=== PATIENT | male | born 1990 | race African-American/Black ===

== ENCOUNTER → 2018-07-02 08:48 | Outpatient (CLI) | payer OTHER, SELFPAY ==
--- NOTE | 2018-07-02 09:00 | RAD_ITS ---
STUDY: X-RAY - ESOPHAGUS (BARIUM SWALLOW) WITH FLUOROSCOPY REASON FOR EXAM: Male, 27 years old. Dysphagia for solids. TECHNIQUE: 18 view(s) of the esophagus were obtained following swallowing of barium. FLUOROSCOPY TIME (if supplied): (0:30) minutes/seconds COMPARISON: None. FINDINGS: There is no demonstrated esophageal foreign body. There is no demonstrated stricture or mucosal abnormality. Normal gastroesophageal junction, without a demonstrated hiatal hernia. The patient ingested a 12 mm tablet of barium without any difficulty. Normal visualized aortic arch and descending thoracic aorta. Normal visualized pulmonary parenchyma. Normal visualized osseous structures of the thorax. RAD/Esophagus Only IMPRESSION: Normal plain film x-ray examination (barium swallow) of the esophagus. Electronically Signed: Magdi Brewer MD at 9:48 EST Tel [phone], Service support ,
== END ==
PROVIDERS: Family Provider Family Medicine; PCP Family Medicine; Referring Provider Family Medicine; Visit Provider Family Medicine
DX: R13.10 Dysphagia, unspecified (principal)
CPT/HCPCS: 74220

== ENCOUNTER → 2021-01-11 09:43 | Outpatient (CLI) | payer OTHER, SELFPAY ==
[2021-01-11 12:49] LABS: BUN 14 mg/dL (7-18); BUN/Creat Ratio 12.4 RATIO (10-20); Creatinine, Serum 1.13 mg/dL (0.70-1.30); EST Glomerular Filtration Rate 81 mL/min (>60); Est Glom Filt Rate - Afr Amer 98 mL/min (>60); Glucose 85 mg/dL (74-106); Protein, Total 8.5 g/dL (6.4-8.2)
[2021-01-11 12:50] LABS: ALB/GLOB Ratio 0.8 RATIO (0.9-2.4); AST(SGOT) 24 U/L (15-37); Alanine Aminotransfer ALT/SGPT 41 U/L (16-61); Albumin, Serum 3.7 g/dL (3.2-5.0); Alkaline Phosphatase 86 U/L (45-117); Anion Gap 5 (5-15); Calcium,Total 9.1 mg/dL (8.5-10.1); Chloride 103 mmol/L (98-107); Cholesterol 184 mg/dL (200); Globulin 4.8 g/dL (2.2-4.2); High Density Lipoprotein 44 mg/dL; Potassium 3.9 mmol/L (3.5-5.1); Sodium Level 137 mmol/L (136-145); Triglycerides 97 mg/dL; Very Low Density Lipoprotein 19 mg/dL (5-40)
== END ==
PROVIDERS: PCP Family Medicine; Referring Provider Physician Assistant Medical; Visit Provider Physician Assistant Medical
DX: L66.8 Other cicatricial alopecia (principal); Z79.899 Other long term (current) drug therapy; L65.9 Nonscarring hair loss, unspecified
CPT/HCPCS: 36415; 80053; 80061

== ENCOUNTER 2022-01-11 09:41 | Day surgery (SDC) | payer OTHER, SELFPAY ==
[2022-01-11] VITALS (7 sets, daily range): BP systolic 109–149; BP diastolic 53–92; PULSE 65–80; RESP 16; TEMP 36.2–36.7; O2SAT 97–100; BMI 39.6
--- NOTE | 2022-01-11 | ESO_PTH ---
PATIENT: RONEY LAMAS LOC: EN U#:[id number] AGE/SX: 31/M ROOM: RE01/11/[address]: Dr. Binh Cedeno DO : 1990 BED: DIS: 01/11/2022 SPEC #: [id number] RECD: 01/11/22 14:54 STATUS: MACK REQ #: [id number] BRIAN: 01/11/22 00:[address]: Binh Cedeno DEPT: SURGICAL PATHOLOGY RECD BY: Jamal Ortega ENTERED: 01/12/22 08:41 SP TYPE: ALISSON BILLS DR: Dr. René Ortega MD Tissues: A - Esophagus, NOS B - Esophageal mucous membrane Procedures: Special Stain Group II Surgery Specimen Level IV Alcian Blue/PAS (control) HEADER OPERATION: [place] ([facility] [place] PRE-OP DIAGNOSIS: Dysphagia TISSUE SUBMITTED: A ? Distal esophagus biopsy, B ? Random esophagus biopsy MICROSCOPIC DIAGNOSIS A. Distal esophagus, biopsy: Fragments of gastric mucosa with mild chronic inflammation. Intestinal metaplasia (goblet cell metaplasia) not identified. See comment. B. Esophagus, random biopsy: Fragments of squamous epithelium with chronic inflammation and changes suggestive of esophagitis. See comment. SJ:rg 01/13/2022 COMMENT A. Alcian blue/PAS stain with matched control is used in the evaluation of the specimen. B. Focal mild increase of eosinophils (about 15 per high power field) are noted suggestive of eosinophilic esophagitis. MICROSCOPIC DESCRIPTION Slides are reviewed. GROSS DESCRIPTION A - Received in fixative is one container labeled with the patient's name and designated distal esophagus biopsy. The specimen consists of multiple irregular fragments of light patiño soft tissue that in aggregate measure 1 x 0.3 x 0.1 cm. The specimen is totally submitted in one cassette. B - Received in fixative is one container labeled with the patient's name and designated random esophagus biopsy. The specimen consists of multiple irregular fragments of light patiño soft tissue that in aggregate measure 1 x 0.3 x 0.1 cm. The specimen is totally submitted in one cassette. / LUIS:bailey 01/12/2022 TC:3 CPT: 22582 x2, 03162
--- NOTE | 2022-01-11 09:46 | PCM.HP.BLA ---
History and Physical Date of Admission: 01/11/22 31 M who presents to the office today for Initial consultation. Yair established with this clinic 10.19.21 with a referral from his PCP for evaluation of dysphagia with food and GERD; onset 2014. On two occasions he has had food lodge without emergent intervention. Utilizes omeprazole 40mg QD which manages reflux well; if stopped for several days, symptoms return. Denies similar family history. History of asthma (with daily inhaler and rescue inhaler). Barium swallow 07.02.18 found a normal exam. ROS Const Constitutional: No anorexia, fatigue, fever(s), weight change or sleep problems Eyes Eyes: No change in vision ENT ENT: No abnormal hearing, difficulty swallowing, mouth lesions, tongue swelling or throat swelling Resp Respiratory: No cough or shortness of breath Cardio Cardiology: No chest pain at rest, chest pain with exertion, shortness of breath or dyspnea on exertion Gastro GI: No difficulty swallowing Genitourinary Male: No difficulty urinating or burning urination Musc Musculoskeletal: No joint pain, joint swelling, muscle weakness or decreased muscle mass Skin Skin: No hair loss in leg, yellowing of the eye, itchy eyes, rash, skin ulcer or skin swelling Neuro Neurology: No abnormal hearing, abnormal movements, confusion, unsteady gait/balance or memory loss Psych Psychiatric: No anxiety, No confusion and No memory loss Endo Endocrine: No fatigue or weight change Aller/Imm Allergy/Immunologic: No itchy eyes, throat swelling or tongue swelling Nelson/Lymp Hematologic/Lymphatic: No easy bleeding, easy bruising or enlarged lymph nodes Exam Const General: cooperative and comfortable Nutritional Appearance: average body habitus and well nourished [facility] Head: normal to inspection Ears: hearing grossly normal bilaterally Nose: external nose normal Face and sinus: normal facial exam Mouth: oral mucosae normal Throat: posterior oropharynx normal Eyes General: appearance normal, both eyes and all related structures Neck Neck: normal visual inspection Chest Chest palpation & inspection: normal inspection of the chest and normal palpation of entire chest wall Resp Effort & Inspection: normal respiratory effort Auscultation: Bilateral: Clear to Auscultation Cardio Palpation: normal PMI Rate: regular rate Rhythm: regular rhythm GI Inspection: normal to inspection Auscultation: normal bowel sounds Percussion: normal to percussion Palpation: no hepatosplenomegaly Skin General: no rashes or lesions noted Neuro General: patient alert Extrem General: normal to inspection Psych Affect: normal affect Assessment and Plan Assessment and Plan (1) Dysphagia: ?Status:?Acute ?Plan - Dr. Purcell Friend, DO: In the setting of multiple allergies to differential? diagnosis for his dysphagia, would include eosinophilic esophagitis.? Also differential diagnosis would be an esophageal ring in the setting of a hiatal hernia and or laxity of the lower esophageal sphincter.? We will evaluate his upper GI tract for eosinophilic esophagitis, esophageal web, esophageal ring, esophageal stricture.? We will also evaluate his stomach and small bowel.? He may get an esophageal dilation.? He was explained alternatives, risk, benefits including understanding bleeding, infection, sepsis, perforation, need for emergent . He will have an ASA of 1. (2) GERD (gastroesophageal reflux disease): ?Status:?Acute I have re-examined the patient. There are no clinical changes since date of exam.
[2022-01-11] MEDS: Lactated Ringers 1,000 ML 15 ML IV (10:12)
--- NOTE | 2022-01-11 10:57 | OP.EGD_ITS ---
Patient Name: Yair Levy Procedure Date: 01/11/2022 10:33 AM Date of : 1990 Age: 31 Procedure: Upper GI endoscopy Indications: Dysphagia, Heartburn Providers: Binh Cedeno DO Medicines: Monitored Anesthesia Care Patient Profile: This is a 31 year old male. Refer to note in patient chart for documentation of history and physical. Patient has symptoms of chronic dysphagia. Complications: No immediate complications. Procedure: Pre-Anesthesia Assessment: - Prior to the procedure, a History and Physical was performed, and patient medications and allergies were reviewed. The patient is competent. The risks and benefits of the procedure and the sedation options and risks were discussed with the patient. All questions were answered and informed consent was obtained. Patient identification and proposed procedure were verified by the physician in the pre-procedure area. Mental Status Examination: alert and oriented. Airway Examination: normal oropharyngeal airway and neck mobility. Respiratory Examination: clear to auscultation. CV Examination: normal. Prophylactic Antibiotics: The patient does not require prophylactic antibiotics. Prior Anticoagulants: The patient has taken no previous anticoagulant or antiplatelet agents. ASA Grade Assessment: II - A patient with mild systemic disease. After reviewing the risks and benefits, the patient was deemed in satisfactory condition to undergo the procedure. The anesthesia plan was to use moderate sedation / analgesia (conscious sedation). Immediately prior to administration of medications, the patient was re-assessed for adequacy to receive sedatives. The heart rate, respiratory rate, oxygen saturations, blood pressure, adequacy of pulmonary ventilation, and response to care were monitored throughout the procedure. The physical status of the patient was re-assessed after the procedure. After obtaining informed consent, the endoscope was passed under direct vision. Throughout the procedure, the patient's blood pressure, pulse, and oxygen saturations were monitored continuously. The gastroscope was introduced through the mouth, and advanced to the second part of duodenum. The upper GI endoscopy was accomplished without difficulty. The patient tolerated the procedure well. Scope In: 10:45:02 AM Scope Out: 10:51:34 AM Total Procedure Duration Time 0 hours 6 minutes 32 seconds Findings: The Z-line was irregular and was found 39 cm from the incisors. Biopsies were taken with a cold forceps for histology. Verification of patient identification for the specimen was done. Estimated blood loss was minimal. Random biopsies were taken of the esophagus to rule out eosinophilic esophagitis. The entire examined stomach was normal. The second portion of the duodenum was normal. Impression: - Z-line irregular, 39 cm from the incisors. Biopsied. - Normal stomach. - Normal second portion of the duodenum. Recommendation: - Discharge patient to home. - Resume previous diet. - Continue present medications. - Await pathology results. Procedure Code(s): --- Professional --- 53370, Esophagogastroduodenoscopy, flexible, transoral; with biopsy, single or multiple CPT copyright 2017 [employer]. All rights reserved. The codes documented in this report are preliminary and upon catering and events manager review may be revised to meet current compliance requirements. Binh Cedeno DO 01/11/2022 10:56:22 AM This report has been signed electronically. Number of Addenda: 1 Note Initiated On: 01/11/2022 10:33 AM Addendum Number: 1 Addendum Date: 05/02/2022 6:19:36 AM MAC was used as sedation for this procedure. Binh Cedeno DO 05/02/2022 6:19:42 AM This report has been signed electronically.
--- NOTE | 2022-01-11 10:58 | OP.CCLET_ITS ---
05/02/2022 Mahendra Ortega [address] [place] [address] Re : Upper GI endoscopy procedure for Yair Levy Dear Dr. Ortega This procedure was performed on Tuesday, January 11, 2022. My impressions and recommendations are as follows: Impressions : - Z-line irregular, 39 cm from the incisors. Biopsied. - Normal stomach. - Normal second portion of the duodenum. Recommendations : - Discharge patient to home. - Resume previous diet. - Continue present medications. - Await pathology results. My findings are described in the full procedure note, which is enclosed. If I can be of further assistance, please feel free to contact me at . Sincerely, Binh Cedeno, 01/11/2022 10:56:22 AM This report has been signed electronically.
== END 2022-01-11 12:12 | disposition home or self-care (01) ==
LOC: EN 09:42 → AC 09:43
PROVIDERS: PCP Family Medicine; Referring Provider Internal Medicine Gastroenterology; Visit Provider Internal Medicine Gastroenterology
PROC: 0DJ08ZZ Inspection of Upper Intestinal Tract, Via Natural or Artificial Opening Endoscopic (ICD-10-PCS; CPT 43235; principal; 2022-01-11 10:40)
DX: K21.00 Gastro-esophageal reflux disease with esophagitis, without bleeding (principal); R13.10 Dysphagia, unspecified; J45.909 Unspecified asthma, uncomplicated; Z79.899 Other long term (current) drug therapy
CPT/HCPCS: 43239; 88305; 88313; J7120; J2405

== ENCOUNTER → 2022-01-24 | Outpatient (CLI) | payer OTHER, SELFPAY ==
[2022-01-24 10:35] LABS: AST(SGOT) 21 U/L (15-37); Alanine Aminotransfer ALT/SGPT 42 U/L (16-61); Albumin, Serum 3.6 g/dL (3.2-5.0); Alkaline Phosphatase 70 U/L (45-117); Globulin 4.4 g/dL (2.2-4.2)
[2022-01-27 12:08] LABS: QNTFERON TB Mitogen Value > 10.00 IU/mL (.); QNTFERON TB Nil Value 0.07 IU/mL (.); QNTFERON TB1+ Ag Value 0.05 IU/mL (.); QNTFERON TB2+ Ag Value 0.05 IU/mL (.)
[2022-01-27 17:43] LABS: QNTIFERON TB Positive Criteria Negative (Negative)
== END | disposition home or self-care (01) ==
LOC: MTLAB 08:46
PROVIDERS: PCP Family Medicine; Referring Provider Dermatology Pediatric Dermatology; Visit Provider Dermatology Pediatric Dermatology
DX: L66.8 Other cicatricial alopecia (principal)
CPT/HCPCS: 36415; 80076; 86480

== ENCOUNTER → 2023-11-15 | Outpatient (CLI) | payer OTHER, SELFPAY ==
[2023-11-22 21:06] LABS: Beef 0.11 kU/L (Class 0/I); Chocolate <0.10 kU/L (Class 0); Codfish 0.12 kU/L (Class 0/I); Corn 2.28 kU/L (Class III); Egg, Whole 0.12 kU/L (Class 0/I); Milk (Cow) 0.59 kU/L (Class II); Mussels 0.23 kU/L (Class 0/I); Peanut 1.28 kU/L (Class II); Pork <0.10 kU/L (Class 0); Salmon <0.10 kU/L (Class 0); Shrimp 0.59 kU/L (Class II); Soybean 0.78 kU/L (Class II); Tuna 0.16 kU/L (Class 0/I); Wheat 1.81 kU/L (Class III)
== END | disposition home or self-care (01) ==
LOC: LAB 07:32
PROVIDERS: PCP Family Medicine; Referring Provider Internal Medicine Gastroenterology; Visit Provider Internal Medicine Gastroenterology
DX: K20.0 Eosinophilic esophagitis (principal)
CPT/HCPCS: 36415; 86003; 86005

== ENCOUNTER → 2024-06-09 | Outpatient (CLI) | payer OTHER, SELFPAY ==
[2024-06-09 10:23] LABS: Anion Gap 4 (5-15); BUN 21 mg/dL (7-18); BUN/Creat Ratio 17.6 RATIO (10-20); Calcium,Total 9.2 mg/dL (8.5-10.1); Chloride 106 mmol/L (98-107); Cholesterol 170 mg/dL (200); Creatinine, Serum 1.19 mg/dL (0.70-1.30); EST Glomerular Filtration Rate 74 mL/min (>60); Est Glom Filt Rate - Afr Amer 90 mL/min (>60); Glucose 96 mg/dL (74-106); High Density Lipoprotein 44 mg/dL; Potassium 4.1 mmol/L (3.5-5.1); Sodium Level 138 mmol/L (136-145); Triglycerides 67 mg/dL; Very Low Density Lipoprotein 13 mg/dL (5-40)
== END | disposition home or self-care (01) ==
LOC: LAB 09:17
PROVIDERS: PCP Family Medicine; Referring Provider Nurse Practitioner Family; Visit Provider Nurse Practitioner Family
DX: Z13.220 Encounter for screening for lipoid disorders (principal); Z13.1 Encounter for screening for diabetes mellitus
CPT/HCPCS: 36415; 80048; 80061

== ENCOUNTER 2025-01-13 12:47 | Day surgery (SDC) | payer OTHER, SELFPAY ==
[2025-01-13] VITALS (8 sets, daily range): BP systolic 137–142; BP diastolic 91–98; PULSE 68–80; RESP 16; TEMP 36.1–37; O2SAT 97–100; BMI 42.3
--- NOTE | 2025-01-13 13:11 | HP.PCM_ITS ---
HPI - General General Date of Admission: 01/13/25 Date of Service: 01/13/25 Chief Complaint: Dysphagia [facility] Narrative RONEY LAMAS, is a 34 M who presents for evaluation of eosinophilic esophagitis and dysphagia OV 10/17/2022 w/ Mary Lou Garcia, MATERIALS MANAGEMENT SUPERVISOR 32 M who presents to the office today for 6 month f/u eosinophilic esophagitis. His symptoms are well controlled on omeprazole 40 mg daily. Biopsies from [facility] on EGD showed 15 eosinophils per HPF. No dysphagia as long as he remains on PPI; he will have dysphagia if he is off PPI for just a few days. Onset was 2014. History of asthma (with daily inhaler and rescue inhaler). EGD 01.11.22 finding irregular Z-line 39cm from incisors. Normal stomach and duodenum. Biopsy of esophagus revealed inflammation and changes suggestive of esophagitis with an increased number of eosinophils. (about 15 per high power field) He exercises regularly. 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 OCTOBER 2023 RAST Food 14 MILK (COW) 0.59 H Class II kU/L WHEAT 1.81 H Class III kU/L CORN 2.28 H Class III kU/L PEANUT 1.28 H Class II kU/L SOYBEAN 0.78 H Class II kU/L PORK <0.10 Class 0 kU/L BEEF 0.11 H Class 0/I kU/L CHOCOLATE <0.10 Class 0 kU/L EGG, WHOLE 0.12 H Class 0/I kU/L Performed at: - [facility] [id number] Hedge Fund Principal: Fred Cornell MD, Phone: [phone] COMMENT Comment . Levels of Specific IgE Class Description of Class ----- < 0.10 0 Negative 0.10 - 0.31 0/I Equivocal/Low 0.32 - 0.55 I Low 0.56 - 1.40 II Moderate 1.41 - 3.90 III High 3.91 - 19.00 IV Very High 19.01 - 100.00 V Very High >100.00 Very High CODFISH 0.12 H Class 0/I kU/L MUSSELS 0.23 H Class 0/I kU/L SALMON <0.10 Class 0 kU/L SHRIMP 0.59 H Class II kU/L TUNA 0.16 H Class 0/I kU/L - he was initially diagnosed in 2021 - Dr. Cedeno is the only GI he has ever seen and has only ever had one EGD - he was initially experiencing dysphagia and this has resolved with Omeprazole - denies any HB - denies any weight loss - denies any N/V - denies any change in bowel habits - He denies ever experiencing heartburn pre or post omeprazole - He reports when he was on his honeymoon he had severe dysphagia with eating shredded beef. His symptoms of dysphagia previously were primarily with beef and bread. -He is seeing an cath laboratory technician [facility] Medical History Wears glasses Wears contact lenses Alcohol use Rash Injury of head and neck Difficulty swallowing Gastric reflux Non-smoker Vision problems Bone fracture Asthma Seasonal allergies GERD (gastroesophageal reflux disease) Home Medications ?Medication ?Instructions ?Recorded ?Last Taken ?Type albuterol sulfate 90 mcg/actuation 2 inh inhalation Q6 H PRN SOB 10/19/21 01/11/22 History breath activated powder inhaler montelukast 10 mg tablet 10 mg PO DAILY 10/19/21 Unkn own History ([facility]) loratadine 10 mg tablet (Claritin) 10 mg PO DAILY PRN ALLERGIES 01/05/22 Unknown History omeprazole 40 mg capsule,delayed 40 mg PO DAILY #90 ca ps 11/14/24 Unknown Rx release Allergy/AdvReac Type Severity Reaction Status Date / Time NSAIDS (Non-Steroidal Allergy Intermediate SOB Verified 01/13/25 13:13 Anti-Inflamma Surgical History History of esophagogastroduodenoscopy (EGD) Hx of facial fracture repair Social History Smoking Status: Never smoker alcohol intake: current alcohol intake frequency: holidays/special occasions only frequency: 3-4 times per week ROS Constitutional Constitutional: Denies fatigue, fever(s), poor appetite, weight gain or weight loss Gastrointestinal Gastrointestinal: Denies belching, bloating, change in bowel habits, change in stool character, chewing difficulty, coffee ground emesis, constipation, cramping, diarrhea, dyspepsia, dysphagia, early satiety, excessive flatus, fecal incontinence, heartburn, hematemesis, hematochezia, hemorrhoids, loose stools, melena, nausea, odynophagia, rectal bleeding, tenesmus, vomiting or weight changes Physical Exam Const alert, oriented x3, no apparent distress and healthy appearing General Appearance: cooperative GI normal to inspection, nondistended, normoactive bowel sounds, soft to palpation, non-tender and non-distended Percussion: normal to percussion Rectal Exam: deferred Assessment & Plan Assessment/Plan (1) Eosinophilic esophagitis: (2) Dysphagia: PLAN: Assessment and Plan Assessment and Plan (1) Eosinophilic esophagitis: Status: Chronic Plan 34-year-old male presents for follow-up of eosinophilic esophagitis. He was initially diagnosed via EGD December 2021 which revealed approximately 15/hpf. He was experiencing upper esophageal dysphagia at that time and reports resolution of symptoms with omeprazole 40 mg daily. Food allergen panel performed October 2023 revealed multiple food allergens including milk, wheat, corn, peanut, soybean, beef, egg, codfish, mussels, shrimp, and tuna. We have reviewed his diagnosis of eosinophilic esophagitis in detail and food elimination diet. We will plan to repeat an EGD at this time to assess eosinophil count. If his eosinophil count is 0, we have discussed decreasing omeprazole to 20 mg daily and starting a 2 food elimination diet. If his eosinophil count remains elevated, I recommend continuing omeprazole 40 mg (possibly increase dose) and starting to food elimination diet. He will follow-up in the office post procedure. Patient Instructions: Written literature provided on eosinophilic esophagitis Patient instructed to review [email or web address] Continue omeprazole 40 mg once daily Follow-up in office post procedure
[2025-01-13] MEDS: Lactated Ringers 1,000 ML 15 ML IV (13:17)
--- NOTE | 2025-01-13 13:38 | PCM.PRE.AN2 ---
ASA Classification* ASA Classification ASA Classification: 2 (Asthma, GERD) Assessment & Plan Anesthesia* Anesthesia Assessment Anesthesia Assessment: Discussed sedation and/or anesthesia options, risks, benefits, and alternatives with patient/parents/legal guardian/POA. Questions invited. The patient/parents/legal guardian/POA seems to understand and agrees to proceed with anesthesia plan. Reviewed the physical assessment, medical history, allergy history and patient home medications list prior to surgery/procedure/anesthetic and documented any changes. Performed airway and anesthesia risk assessments. Anesthesia Type Anesthesia Type: General History Source History Obtained from:: Patient and Chart Anesthesia Focused Assessment* Temperature: 98.6 F Pulse Rate: 68 Blood Pressure: 142/91 Respiratory Rate: 16 Pulse Ox: 97 Oxygen Delivery Method: Room Air Airway Assessment Mouth opens: >3 cm Mallampati Score: II Teeth Condition: Intact Neck Range of motion (ROM): Full ROM Labs Anesthesia Preop lab: CBC WBC 5.4 K/mm3 (4.4-11.0) 11/14/16 08:35 11/14/16 RBC 4.53 M/mm3 (4.6-6.2) L 11/14/16 08:35 11/14/16 Hgb 13.6 g/dl (13.0-16.5) 11/14/16 08:35 11/14/16 Hct 41.7 % (40-54) 11/14/16 08:35 11/14/16 Plt Count 184 K/mm3 (150-450) 11/14/16 08:35 11/14/16 CHEMISTRY Potassium 4.1 mmol/L (3.5-5.1) 06/09/24 09:25 06/09/24 Sodium 138 mmol/L (136-145) 06/09/24 09:25 06/09/24 BUN 21 mg/dL (7-18) H 06/09/24 09:25 06/09/24 Creatinine 1.19 mg/dL (0.70-1.30) 06/09/24 09:25 06/09/24 Glucose 96 mg/dL (74-106) 06/09/24 09:25 06/09/24 COAG Pre-Assessment Diagnosis/Proposed Procedure Planned Operative Procedure(s): EGD Anesthesia History Anesthesia History - radiological health specialist: Anesthesia History - radiological health specialist Hx Hospitalization No 01/09/25 13:32 Any Problems With Anesthesia No 01/09/25 13:32 Cholinesterase deficiency No 01/09/25 13:32 You/Your Family Experience No 01/09/25 13:32 fever (hyperthermia) with Relationship Recent Exposure to Contagious No 01/13/25 13:14 Disease Does patient have nerve No 01/09/25 13:32 stimulator Patient instructed to have device shut off --Does patient have Pacemaker No 01/13/25 13:14 or ICD? When Was Last Pacemaker Check QUESTION #4 FULL TEXT: You/Your Family Experience fever (hyperthermia) with Anesthesia Last Oral Intake Last Oral intake: Last Oral Intake NPO since 23:00 01/13/25 13:14 Meds taken in AM with sips of No 01/13/25 13:14 water? Meds patient instructed to take am of surgery PONV PONV - radiological health specialist: PONV - radiological health specialist Female No 01/09/25 13:32 HX of Motion Sickness No 01/09/25 13:32 HX of N/V After Surgery No 01/09/25 13:32 Non-Smoker Yes 01/09/25 13:32 Duration of Surgery greater No 01/09/25 13:32 than 60 minutes Number of Risk Factors 1 01/09/25 13:32 PONV Score Low Risk 01/09/25 13:32 Height & Weight Height & Weight: Anesthesia: Height & Weight Height 5 ft 9 in 01/13/25 13:14 Weight: 130 kg 01/13/25 13:14 Body Mass Index (BMI) 42.3 01/13/25 13:14 Respiratory Assessment Respiratory Assessment - radiological health specialist: Respiratory Tract Infection Hx - radiological health specialist Hx Respiratory Tract Infection No 01/09/25 13:32 STOP Sleep Apnea STOP Sleep Apnea - radiological health specialist: STOP Sleep Apnea - radiological health specialist Hx Hypertension No 01/09/25 13:32 Hx Sleep Apnea No 01/09/25 13:32 CPAP BIPAP Do you snore loudly (louder No 01/09/25 13:32 than talking or can be heard Do you often feel tired/ No 01/09/25 13:32 fatigued/ sleepy during daytime? Has anyone observed you stop No 01/09/25 13:32 breathing during sleep? STOP Results Negative 01/09/25 13:32 QUESTION #5 FULL TEXT : Do you snore loudly (louder than talking or can be heard through closed doors)? Tobacco Use History Tobacco Use History - radiological health specialist: Tobacco Use History - radiological health specialist Tobacco Use Smoking Status Never smoker 01/09/25 13:32 Hx Tobacco Use No 01/09/25 13:32 Years Smoking Packs Smoked per Day Smoking Cessation Date was within the last 15 years Hx Smoking Cessation Date Hx Smoking Cessation Counseling Hematologic Medial History Hematologic Hx - radiological health specialist: Hematologic Medical Hx - documentation supervisor Hx of Blood Transfusion No 01/09/25 13:32 Hx of Transfusion in last 3 No 01/09/25 13:32 Months Date of Last Transfusion (if within last 3 months) Ever experience any problems No 01/09/25 13:32 with transfusion(s)? Specify any problems Hx of Preganancy in last 3 N/A 01/09/25 13:32 Months Nurse Filling Out Transfusion VCHRISTIN 01/09/25 13:32 & Questions: Date: 01/09/25 01/09/25 13:32 Time: 13:34 01/09/25 13:32 Patient unable to answer at this time (ie. confused, unrespo /Reproduction History /Reproductive History - radiological health specialist: /Reproductive Hx- radiological health specialist Hx Now No 01/09/25 13:32 Gestational Age (in weeks): EDC: Hx Hx Para Hx Section SAB No 01/09/25 13:32 Active Medications Active Medications: Current Medications Generic Name Dose Route Start Last Admin Trade Name Freq PRN Reason Stop Dose Admin Lactated Ringer's 1,000 mls @ 15 mls/hr 01/13/25 13:00 01/13/25 13:17 IV 15 mls/hr .Q48H TROY Administration PFSH Medical History Wears glasses Wears contact lenses Alcohol use Rash Injury of head and neck Difficulty swallowing Gastric reflux Non-smoker Vision problems Bone fracture Asthma Seasonal allergies GERD (gastroesophageal reflux disease) Home Medications ?Medication ?Instructions ?Recorded ?Last Taken ?Type albuterol sulfate 90 mcg/actuation 2 inh inhalation Q6H PRN SOB 10/19/21 01/11/22 History breath activated powder inhaler montelukast 10 mg tablet 10 mg PO DAILY 10/19/21 Unknown History (Singulair) loratadine 10 mg tablet (Claritin) 10 mg PO DAILY PRN ALLERGIES 01/05/22 Unknown History omeprazole 40 mg capsule,delayed 40 mg PO DAILY #90 caps 11/14/24 Unknown Rx release Allergy/AdvReac Type Severity Reaction Status Date / Time NSAIDS (Non-Steroidal Allergy Intermediate SOB Verified 01/13/25 13:13 Anti-Inflamma Surgical History History of esophagogastroduodenoscopy (EGD) Hx of facial fracture repair Social History Smoking Status: Never smoker alcohol intake: current alcohol intake frequency: holidays/special occasions only frequency: 3-4 times per week Review of Systems (Anesthesia) ROS Narrative System reviewed and no additional complaints, except as documented. Physical Exam Const alert, oriented x3 and average body habitus Resp normal respiratory effort, normal air movement and clear to auscultation bilaterally Cardio regular rate, regular rhythm, no murmurs and diaphoretic
--- NOTE | 2025-01-13 13:45 | EGD_PTH ---
PATIENT: RONEY LAMAS LOC: EN U#:[id number] AGE/SX: 34/M ROOM: RE01/13/[address]: Dr. Binh Cedeno DO : 1990 BED: DIS: 01/13/2025 SPEC #: [id number] RECD: 01/13/25 16:35 STATUS: MACK REBeka #: [id number] BRIAN: 01/13/25 13:[address]: Binh Cedeno DEPT: SURGICAL PATHOLOGY RECD BY: Harish Moreno ENTERED: 01/14/25 09:46 SP TYPE: EGD BIOPSY SANJU DR: Dr. René Ortega MD Tissues: A - Esophagus, NOS Procedures: Surgery Specimen Level IV HEADER OPERATION: EGD with biopsy and dilatation PRE-OP DIAGNOSIS: Eosinophilic esophagitis TISSUE SUBMITTED: A- Random esophagus biopsy MICROSCOPIC DIAGNOSIS A. Esophagus, random biopsy: Squamous mucosa with reactive changes, 5 eosinophils per high power field. MICROSCOPIC DESCRIPTION Slides are reviewed. GROSS DESCRIPTION A. Received in fixative is one container labeled with the patient's name and designated Random esophagus biopsy. The specimen consists of three irregular fragments of light patiño soft tissue that in aggregate measure 0.3 to 0.5 cm. The specimen is totally submitted in one cassette. PETER/ 01/14/2025 CPT:61669
--- NOTE | 2025-01-13 14:28 | OP.EGD_ITS ---
Patient Name: Yair Levy Procedure Date: 01/13/2025 2:01 PM Date of : 1990 Age: 34 Procedure: Upper GI endoscopy Indications: Dysphagia Providers: Binh Cedeno DO Referring MD: Mahendra Ortega Medicines: Monitored Anesthesia Care Patient Profile: This is a 34 year old male. Refer to note in patient chart for documentation of history and physical. Patient has symptoms of dysphagia with both liquids and solids. Complications: No immediate complications. Procedure: Pre-Anesthesia Assessment: - Prior to the procedure, a History and Physical was performed, and patient medications and allergies were reviewed. The patient is competent. The risks and benefits of the procedure and the sedation options and risks were discussed with the patient. All questions were answered and informed consent was obtained. Patient identification and proposed procedure were verified by the physician in the pre-procedure area. Mental Status Examination: alert and oriented. Airway Examination: normal oropharyngeal airway and neck mobility. Respiratory Examination: clear to auscultation. CV Examination: normal. Prophylactic Antibiotics: The patient does not require prophylactic antibiotics. Prior Anticoagulants: The patient has taken no anticoagulant or antiplatelet agents except for NSAID medication. ASA Grade Assessment: II - A patient with mild systemic disease. After reviewing the risks and benefits, the patient was deemed in satisfactory condition to undergo the procedure. The anesthesia plan was to use monitored anesthesia care (MAC). Immediately prior to administration of medications, the patient was re-assessed for adequacy to receive sedatives. The heart rate, respiratory rate, oxygen saturations, blood pressure, adequacy of pulmonary ventilation, and response to care were monitored throughout the procedure. The physical status of the patient was re-assessed after the procedure. After obtaining informed consent, the endoscope was passed under direct vision. Throughout the procedure, the patient's blood pressure, pulse, and oxygen saturations were monitored continuously. The gastroscope was introduced through the mouth, and advanced to the second part of duodenum. The upper GI endoscopy was accomplished without difficulty. The patient tolerated the procedure well. Scope In: 2:15:11 PM Scope Out: 2:20:00 PM Total Procedure Duration Time 0 hours 4 minutes 49 seconds Findings: Mucosal changes including ringed esophagus, feline appearance, longitudinal furrows and small-caliber esophagus were found in the middle third of the esophagus and in the lower third of the esophagus. Biopsies were obtained from the proximal and distal esophagus with cold forceps for histology of suspected eosinophilic esophagitis. Verification of patient identification for the specimen was done. Estimated blood loss was minimal. A guidewire was placed and the scope was withdrawn. Dilation was performed with a Savary dilator with no resistance at 60 Fr. The dilation site was examined and showed moderate improvement in luminal narrowing. Estimated blood loss was minimal. The entire examined stomach was normal. The examined duodenum was normal. Impression: - Esophageal mucosal changes secondary to eosinophilic esophagitis. Dilated. - Normal stomach. - Normal examined duodenum. - Biopsies were taken with a cold forceps for evaluation of eosinophilic esophagitis. Recommendation: - Discharge patient to home. - Resume previous diet. - Continue present medications. - Await pathology results. Procedure Code(s): --- Professional --- 10783, Esophagogastroduodenoscopy, flexible, transoral; with insertion of guide wire followed by passage of dilator(s) through esophagus over guide wire 26730, 59,51, Esophagogastroduodenoscopy, flexible, transoral; with biopsy, single or multiple CPT copyright 2021 [employer]. All rights reserved. The codes documented in this report are preliminary and upon slabber review may be revised to meet current compliance requirements. Binh Cedeno DO 01/13/2025 2:27:54 PM This report has been signed electronically. Number of Addenda: 0 Note Initiated On: 01/13/2025 2:01 PM
--- NOTE | 2025-01-13 14:28 | OP.CCLET_ITS ---
01/13/2025 Mahendra Ortega [address] [place] [address] Re : Upper GI endoscopy procedure for Yair Levy Dear Dr. Ortega This procedure was performed on Monday, January 13, 2025. My impressions and recommendations are as follows: Impressions : - Esophageal mucosal changes secondary to eosinophilic esophagitis. Dilated. - Normal stomach. - Normal examined duodenum. - Biopsies were taken with a cold forceps for evaluation of eosinophilic esophagitis. Recommendations : - Discharge patient to home. - Resume previous diet. - Continue present medications. - Await pathology results. My findings are described in the full procedure note, which is enclosed. If I can be of further assistance, please feel free to contact me at . Sincerely, Binh Cedeno, 01/13/2025 2:27:54 PM This report has been signed electronically.
--- NOTE | 2025-01-13 14:32 | PCM.POST.ANE ---
Anesthesia: Postop Eval I Current Vital Signs Temperature: 97 F Pulse Rate: 80 Blood Pressure: 140/96 Respiratory Rate: 16 Pulse Ox: 98 Oxygen Delivery Method: Room Air Assessment Airway patent: Yes Spontaneous unlabored respirations: Yes Mental status: Asleep nausea: No Vomiting: No Anesthesia Complication: No Fluid Hydration Crystalloid volume administer (ml): 300 Total IV fluid infused: 300 Progress Note Anesthesia document: Postop Eval 1 completed: Yes
--- NOTE | 2025-01-13 18:40 | PCM.POSTANE2 ---
Anesthesia Postop Eval I Sum Postop Eval Completion status Anesthesia document: Postop Eval 1 completed: Yes Anesthesia Postop Eval I Summary Anesthesia Postop Eval I Summary: Anesthesia Postop Eval I: Assessment Summary Airway patent Yes 01/13/25 14:33 [email or web address] Spontaneous unlabored Yes 01/13/25 14:33 [email or web address] respirations Mental status Asleep 01/13/25 14:33 [email or web address] nausea No 01/13/25 14:33 [email or web address] Vomiting No 01/13/25 14:33 [email or web address] Anesthesia Postop Eval I: Fluid Summary Crystalloid volume administer 300 01/13/25 14:33 [email or web address] (ml) Colloids volume administered ( ml) Blood Product volume administered (ml) Total IV fluid infused 300 01/13/25 14:33 [email or web address] Anesthesia Postop Eval I: Summary Notes Anesthesia Complication No 01/13/25 14:33 [email or web address] Anesthesia Complication Comment: Post-operative progress note Anesthesia: Postop Eval II Evaluation Mental status: Awake Pain Level: 0 nausea: No Vomiting: No Complications Anesthesia Complication: No
== END 2025-01-13 15:16 | disposition home or self-care (01) ==
LOC: EN 12:49 → AC 12:51
PROVIDERS: PCP Family Medicine; Referring Provider Family Medicine; Visit Provider Internal Medicine Gastroenterology
PROC: 0DJ08ZZ Inspection of Upper Intestinal Tract, Via Natural or Artificial Opening Endoscopic (ICD-10-PCS; CPT 43235; principal; 2025-01-13 13:40)
DX: K20.0 Eosinophilic esophagitis (principal); R13.10 Dysphagia, unspecified; K21.9 Gastro-esophageal reflux disease without esophagitis
CPT/HCPCS: 43248; 43239; 88305; C1769; J2405